=== PATIENT | male | born 1970 | race Caucasian/White ===

== ENCOUNTER 2021-07-22 22:39 | Inpatient (IN) | payer MEDICAID ==
[~2021-07-22] VITALS: Ht 165.1 cm; Wt 76.7 kg
[2021-07-23] MEDS ORDERED: ZOLPIDEM TARTRATE 5 MG TABLET PO PRN (08:30)
[2021-07-23] MEDS ORDERED: HALOPERIDOL 5 MG TABLET PO PRN (08:30)
[2021-07-23 10:58] VITALS: BP 150/86
[2021-07-23] MEDS ORDERED: DEXTROSE 50%-WATER 25 GM/50 ML SYRINGE IVP PRN (11:15)
[2021-07-23] MEDS: LISINOPRIL 20 MG TABLET PO SCH (12:21)
[2021-07-23] MEDS: FOLIC ACID 1 MG TABLET PO SCH (12:21)
[2021-07-23] MEDS: ASPIRIN 81 MG CHEWABLE TABLET PO SCH (12:21)
[2021-07-23] MEDS: ATORVASTATIN CALCIUM 40 MG TABLET PO SCH (12:21)
[2021-07-23] MEDS: MULTIVITAMINS WITH MINERALS, THERAPEUTIC TABLET PO SCH (12:22)
[2021-07-23] MEDS: METOPROLOL TARTRATE 50 MG TABLET PO SCH (16:13)
[2021-07-23] MEDS: PANTOPRAZOLE SODIUM 40 MG DR TABLET PO SCH (16:13)
[2021-07-23 16:26] LABS: GLUCOMETER DEV NAME(LOC) 3E.C; GLUCOSE,POINT OF CARE 184 MG/DL (70-110)
[2021-07-23 16:30] VITALS: BP 111/76
[2021-07-23] MEDS: MIRTAZAPINE 30 MG TABLET PO SCH ×2 (20:23→21:07)
[2021-07-23] MEDS: QUEtiapine FUMARATE 100 MG TABLET PO SCH ×2 (20:23→21:08)
[2021-07-23] MEDS ORDERED: INSULIN GLARGINE,HUM.REC.ANLOG 100 UNITS/ML SQ SCH (21:00)
[2021-07-23] MEDS ORDERED: ZOLPIDEM TARTRATE 10 MG TABLET PO PRN (22:24)
[2021-07-23 23:08] LABS: COVID AG,FIA SOURCE NASAL SWAB
[2021-07-24] MEDS: INSULIN LISPRO 100 UNITS/ML SQ PRN ×2 (07:01→17:02)
[2021-07-24 07:11] LABS: GLUCOMETER DEV NAME(LOC) 3E.C; GLUCOSE,POINT OF CARE 202 MG/DL (70-110)
[2021-07-24 08:26] VITALS: BP 128/86
[2021-07-24] MEDS: FOLIC ACID 1 MG TABLET PO SCH (08:55)
[2021-07-24] MEDS: PANTOPRAZOLE SODIUM 40 MG DR TABLET PO SCH ×2 (08:55→16:42)
[2021-07-24] MEDS: METOPROLOL TARTRATE 50 MG TABLET PO SCH ×2 (08:55→17:30)
[2021-07-24] MEDS: LISINOPRIL 20 MG TABLET PO SCH (08:55)
[2021-07-24] MEDS: ATORVASTATIN CALCIUM 40 MG TABLET PO SCH (08:55)
[2021-07-24] MEDS: MULTIVITAMINS WITH MINERALS, THERAPEUTIC TABLET PO SCH (08:55)
[2021-07-24] MEDS: ASPIRIN 81 MG CHEWABLE TABLET PO SCH (08:55)
[2021-07-24] MEDS: LORazepam 2 MG TABLET PO PRN ×2 (08:56→16:55)
[2021-07-24] MEDS ORDERED: THIAMINE 100 MG TABLET PO SCH (09:00)
[2021-07-24] MEDS ORDERED: NICOTINE POLACRILEX 4 MG GUM CHEW PRN (09:45)
[2021-07-24 10:03] LABS: BASOPHILS % (AUTO) 0.6 % (0.0-2.0); HEMATOCRIT 37.2 % (41-53); HEMOGLOBIN 12.8 g/dL (13.5-17.5); LYMPHOCYTES # (AUTO) 1.4 K/uL (1.0-4.8); LYMPHOCYTES % (AUTO) 23.4 % (22.0-44.0); MEAN CORPUSCULAR HEMOGLOBIN 31.7 pg (26.0-34.0); MEAN CORPUSCULAR HGB CONC 34.5 G/dL (31.0-37.0); MEAN CORPUSCULAR VOLUME 92 fL (80-100); MONOCYTES # (AUTO) 0.5 K/uL (0.1-1.0); MONOCYTES % (AUTO) 8.6 % (2.0-9.0); NEUTROPHILS # (AUTO) 3.8 K/uL (1.8-7.7); NEUTROPHILS % (AUTO) 62.4 % (40.0-70.0); PLATELET COUNT (AUTO) 124 K/uL (150-450); RED BLOOD CELL COUNT(AUTO) 4.05 MIL/uL (4.50-5.90); RED CELL DISTRIBUTION WIDTH 13.9 % (11.5-14.5)
[2021-07-24 10:14] LABS: ALANINE AMINOTRANSFERASE 79 U/L (12-78); ALBUMIN 3.3 g/dL (3.4-5.0); ALKALINE PHOSPHATASE 63 U/L (46-116); ANION GAP 11 mmol/L (8-16); ASPARTATE AMINOTRANSFERASE 69 U/L (15-37); BILIRUBIN,TOTAL 0.5 mg/dL (0.1-1.0); CALCIUM, TOTAL 9.3 mg/dL (8.8-10.5); CARBON DIOXIDE 25 mmol/L (22-29); CHLORIDE 101 mmol/L (98-107); CHOL/HDL RATIO 2.9 (4.2-7.3); CHOLESTEROL 180 mg/dL (131-200); CREATININE 0.88 mg/dL (0.60-1.30); GLOMERULAR FILTR. RATE CALC > 60 mL/min (>60); GLUCOSE,RANDOM 257 mg/dL (70-110); HDL CHOLESTEROL 62 mg/dL (40-60); LDL CHOL (CALC.) 91 mg/dL (0-130); SODIUM SERUM 137 mmol/L (136-145); TOTAL PROTEIN, SERUM 7.5 g/dL (6.4-8.2); TRIGLYCERIDES 137 mg/dL (15-150); UREA NITROGEN, BLOOD 15 mg/dL (7-18)
[2021-07-24 10:21] LABS: HEMOGLOBIN A1C 7.9 % (3.8-5.6)
[2021-07-24 17:12] LABS: GLUCOMETER DEV NAME(LOC) 3E.C; GLUCOSE,POINT OF CARE 204 MG/DL (70-110)
[2021-07-24 18:16] VITALS: BP 109/80
== END 2021-07-24 19:00 | disposition left against medical advice (07) | DRG 751 ==
LOC: 3EC 07-23 09:01
PROVIDERS: ADMIT Psychiatry & Neurology Child & Adolescent Psychiatry; ATTEND Psychiatry & Neurology Child & Adolescent Psychiatry
DX: F33.3 Major depressive disorder, recurrent, severe with psychotic symptoms (principal); F41.9 Anxiety disorder, unspecified; Z20.822 Contact with and (suspected) exposure to COVID-19; Z59.00 Homelessness unspecified
CPT/HCPCS: 80053; 80061; 82962; 83036; 85025; 87081; G0480; J1815

== ENCOUNTER 2024-05-23 17:37 | Inpatient (IN) | payer MEDICAID, OTHER ==
[~2024-05-23] VITALS: Ht 165.1 cm; Wt 68.7 kg
[2024-05-23 18:17] LABS: HEMATOCRIT 38.1 % (41-53); HEMOGLOBIN 12.8 g/dL (13.5-17.5); LYMPHOCYTES # (AUTO) 2.7 K/uL (1.0-4.8); LYMPHOCYTES % (AUTO) 45.9 % (22.0-44.0); MEAN CORPUSCULAR HEMOGLOBIN 33.8 pg (26.0-34.0); MEAN CORPUSCULAR HGB CONC 33.7 G/dL (31.0-37.0); MEAN CORPUSCULAR VOLUME 100 fL (80-100); MONOCYTES # (AUTO) 0.6 K/uL (0.1-1.0); MONOCYTES % (AUTO) 10.9 % (2.0-9.0); NEUTROPHILS # (AUTO) 2.2 K/uL (1.8-7.7); NEUTROPHILS % (AUTO) 37.2 % (40.0-70.0); PLATELET COUNT (AUTO) 146 K/uL (150-450); RED CELL DISTRIBUTION WIDTH 14.9 % (11.5-14.5); WHITE BLOOD COUNT (AUTO) 5.8 K/uL (4.5-11.0)
[2024-05-23 18:26] LABS: ANION GAP 8 mmol/L (8-16); CALCIUM, TOTAL 7.7 mg/dL (8.8-10.5); CARBON DIOXIDE 28 mmol/L (22-29); CHLORIDE 106 mmol/L (98-107); CREATININE 0.61 mg/dL (0.60-1.30); GLOMERULAR FILTR. RATE CALC > 60 mL/min (>60); GLUCOSE,RANDOM 178 mg/dL (70-110); POTASSIUM 3.6 mmol/L (3.5-5.1); SODIUM SERUM 142 mmol/L (136-145); UREA NITROGEN, BLOOD 15 mg/dL (7-18)
[2024-05-23 18:43] LABS: ALCOHOL, BLOOD (SERUM) 334 mg/dL (0-10)
[2024-05-23 18:48] LABS: RBC MORPHOLOGY COMMENT ABNORMAL RBC MORPH
[2024-05-23 19:30] LABS: CREATINE KINASE, TOTAL ONLY 55 U/L (39-308); TROPONIN I-HIGH SENSITIVITY 4 ng/L (<76)
[2024-05-23 19:33] LABS: B-TYPE NATRIURETIC PEPTIDE 9 pg/mL (0-100)
[2024-05-23] MEDS: DiphenhydrAMINE HCL 50 MG/ML VIAL IM ONE (20:18)
[2024-05-23] MEDS: HALOPERIDOL LACTATE 5 MG/ML VIAL IM ONE (20:18)
[2024-05-23] MEDS: LORazepam 2 MG/ML VIAL IM ONE (20:26)
[2024-05-23 22:16] LABS: COVID AG,FIA SOURCE NASAL SWAB
[2024-05-23 22:38] LABS: SARS-COV2 (COVID) ANTIGEN,FIA Negative (Negative)
[2024-05-24] MEDS: ChlordiazePOXIDE HCL 25 MG CAPSULE PO ONE (04:12)
[2024-05-24 05:15] LABS: APPEARANCE,URINE CLEAR (CLEAR); BILIRUBIN,URINE NEGATIVE (NEGATIVE); COLOR,URINE YELLOW (YELLOW); GLUCOSE, URINE (UA) 300-500 mg/dL (NEGATIVE); KETONES,URINE NEGATIVE (NEGATIVE); LEUKOCYTE ESTERASE ,URINE NEGATIVE (NEGATIVE); NITRATE,URINE NEGATIVE (NEGATIVE); OCCULT BLOOD,URINE NEGATIVE (NEGATIVE); PROTEIN,URINE 30-70 mg/dL (NEGATIVE)
[2024-05-24 05:29] LABS: ALCOHOL, URINE DRUG SCREEN POSITIVE (NEGATIVE); AMPHET/METH SCREEN,URINE NEGATIVE (NEGATIVE); BARBITURATE SCREEN, URINE POSITIVE (NEGATIVE); BENZODIAZEPINES SCREEN,URINE POSITIVE (NEGATIVE); CANNABINOID SCREEN,URINE NEGATIVE (NEGATIVE); COCAINE SCREEN,URINE NEGATIVE (NEGATIVE); METHADONE SCREEN, URINE NEGATIVE (NEGATIVE); OPIATE SCREEN,URINE NEGATIVE (NEGATIVE); PHENCYCLIDINE SCREEN,URINE NEGATIVE (NEGATIVE)
[2024-05-24 05:56] LABS: RBC,URINE None Seen /HPF (0-2)
[2024-05-24 05:57] LABS: BACTERIA,URINE None Seen /HPF (None Seen); FINE GRANULAR CASTS,URINE 0-2 /LPF (None Seen); SQUAMOUS EPITHELIAL CELL,UR Few /LPF (None Seen); WBC,URINE None Seen /HPF (0-5)
[2024-05-24 06:26] LABS: GLUCOMETER DEV NAME(LOC) ER.7; GLUCOSE,POINT OF CARE 187 MG/DL (70-110)
[2024-05-24] MEDS: CloNIDine HCL 0.2 MG TABLET PO ONE (06:29)
[2024-05-24 07:50] LABS: GLUCOMETER DEV NAME(LOC) ER.7; GLUCOSE,POINT OF CARE 253 MG/DL (70-110)
[2024-05-24] MEDS: MetFORMIN HCL 500 MG TABLET PO ONE (08:45)
[2024-05-24 09:50] LABS: GLUCOMETER DEV NAME(LOC) ER.7; GLUCOSE,POINT OF CARE 191 MG/DL (70-110)
[2024-05-24] MEDS ORDERED: PETROLATUM,WHITE 28 GM JELLY TP PRN (16:15)
[2024-05-24] MEDS ORDERED: DOCUSATE SODIUM 100 MG CAPSULE PO PRN (16:15)
[2024-05-24] MEDS ORDERED: BENZOCAINE/MENTHOL [CEPACOL] LOZENGE PO PRN (16:15)
[2024-05-24] MEDS ORDERED: MAG HYDROX/ALUMINUM HYD/SIMETH ES 30 ML SUSPENSION UDCUP PO PRN (16:15)
[2024-05-24] MEDS ORDERED: ONDANSETRON 4 MG TABLET PO PRN (16:15)
[2024-05-24] MEDS ORDERED: ALBUTEROL SULFATE HFA 90 MCG/PUFF 8 GM INHALER IH PRN (16:15)
[2024-05-24] MEDS ORDERED: CloNIDine HCL 0.1 MG TABLET PO PRN (16:15)
[2024-05-24] MEDS ORDERED: BACITRACIN 28 GM OINTMENT TP PRN (16:15)
[2024-05-24] MEDS ORDERED: LOPERAMIDE HCL 2 MG CAPSULE PO PRN (16:15)
[2024-05-24] MEDS ORDERED: OMEPRAZOLE 20 MG CAPSULE PO PRN (16:15)
[2024-05-24] MEDS ORDERED: MAGNESIUM HYDROXIDE SUSPENSION 30 ML UDCUP PO PRN (16:15)
[2024-05-24] MEDS ORDERED: IBUPROFEN 600 MG TABLET PO PRN (16:15)
[2024-05-24] MEDS ORDERED: ACETAMINOPHEN 325 MG TABLET PO PRN (16:15)
[2024-05-24] MEDS: LORazepam 2 MG TABLET PO PRN (16:29)
[2024-05-24 18:17] VITALS: BP 137/84; PULSE 75; RESP 18; TEMP 98; O2SAT 98
[2024-05-24] MEDS ORDERED: INFLUENZA VIRUS VACCINE TVS (6MO+) 2024-25/PF 45 MCG/0.5 ML SYRINGE IM. ONE (18:45)
[2024-05-24] MEDS: NICOTINE POLACRILEX 2 MG LOZENGE PO PRN (21:04)
[2024-05-24] MEDS: ZOLPIDEM TARTRATE 10 MG TABLET PO PRN (21:04)
[2024-05-24 21:22] VITALS: BP 109/72; PULSE 80; RESP 18; TEMP 97.9; O2SAT 99
[2024-05-25] MEDS: HALOPERIDOL 5 MG TABLET PO PRN (09:21)
[2024-05-25 09:36] VITALS: BP 160/90; PULSE 81; RESP 17; TEMP 98; O2SAT 97
[2024-05-25] MEDS ORDERED: DEXTROSE 50%-WATER 25 GM/50 ML SYRINGE IVP PRN (16:45)
[2024-05-25] MEDS: ASPIRIN 81 MG CHEWABLE TABLET PO SCH (17:19)
[2024-05-25] MEDS: SERTRALINE HCL 100 MG TABLET PO SCH (17:20)
[2024-05-25] MEDS: ATORVASTATIN CALCIUM 40 MG TABLET PO SCH (17:20)
[2024-05-25] MEDS: INSULIN LISPRO 100 UNITS/ML SQ PRN (17:27)
[2024-05-25] MEDS: AmLODIPine BESYLATE 5 MG TABLET PO SCH (17:29)
[2024-05-25] MEDS: MetFORMIN HCL 500 MG TABLET PO SCH (17:29)
[2024-05-25 17:31] LABS: GLUCOMETER DEV NAME(LOC) 3EX.2; GLUCOSE,POINT OF CARE 259 MG/DL (70-110)
[2024-05-25] MEDS: SitaGLIPtin PHOSPHATE 25 MG TABLET PO SCH (18:24)
[2024-05-25] MEDS: OLMESARTAN MEDOXOMIL 20 MG TABLET PO SCH (18:24)
[2024-05-25] MEDS: APIXABAN 5 MG TABLET PO SCH (18:24)
[2024-05-25] MEDS: BUDESONIDE/FORMOTEROL FUMARATE 160-4.5 MCG/PUFF 10.2 GM INHALER IH SCH (18:24)
[2024-05-25 21:01] LABS: GLUCOMETER DEV NAME(LOC) 3EX.2; GLUCOSE,POINT OF CARE 189 MG/DL (70-110)
[2024-05-25 21:24] VITALS: BP 158/93; PULSE 97; RESP 18; TEMP 98.1; O2SAT 97
[2024-05-25] MEDS: INSULIN GLARGINE,HUM.REC.ANLOG 100 UNITS/ML SQ SCH (21:24)
[2024-05-26 06:46] LABS: GLUCOMETER DEV NAME(LOC) 3EX.2; GLUCOSE,POINT OF CARE 145 MG/DL (70-110)
[2024-05-26] MEDS ORDERED: SERT-162 PO (08:16)
[2024-05-26] MEDS ORDERED: APIX5TAB PO (08:22)
[2024-05-26] MEDS ORDERED: ASPI-1227 PO (08:23)
[2024-05-26] MEDS ORDERED: ASPI-1515 PO (08:23)
[2024-05-26] MEDS ORDERED: ATOR40TA28 PO (08:23)
[2024-05-26] MEDS ORDERED: AMLO-257 PO (08:24)
[2024-05-26] MEDS ORDERED: BUDE10.26 IH (08:25)
[2024-05-26] MEDS ORDERED: FOLI0.4T6 PO (08:25)
[2024-05-26] MEDS ORDERED: INSLAN SQ (08:26)
[2024-05-26] MEDS ORDERED: MULT1TAB28 PO (08:27)
[2024-05-26] MEDS ORDERED: SITA25 PO (08:28)
[2024-05-26] MEDS ORDERED: OLME20TA73 PO (08:28)
[2024-05-26] MEDS ORDERED: METF-1211 PO (08:28)
[2024-05-26] MEDS ORDERED: THIA100T80 PO (08:29)
[2024-05-26] MEDS: FOLIC ACID 1 MG TABLET PO SCH (09:20)
[2024-05-26] MEDS: MULTIVITAMINS WITH MINERALS, THERAPEUTIC TABLET PO SCH (09:21)
[2024-05-26] MEDS: THIAMINE 100 MG TABLET PO SCH (09:21)
[2024-05-26 11:41] LABS: GLUCOMETER DEV NAME(LOC) 3EX.2; GLUCOSE,POINT OF CARE 137 MG/DL (70-110)
[2024-05-26 12:09] VITALS: BP 133/94; PULSE 90; RESP 17; TEMP 97.1; O2SAT 98
== END 2024-05-26 13:58 | disposition home or self-care (01) | DRG 753 ==
LOC: EMS 17:37 → 3EI 05-24 15:22
PROVIDERS: ADMIT Psychiatry & Neurology Psychiatry; ATTEND Psychiatry & Neurology Psychiatry
DX: F31.9 Bipolar disorder, unspecified (principal); E10.9 Type 1 diabetes mellitus without complications; F10.10 Alcohol abuse, uncomplicated; F17.200 Nicotine dependence, unspecified, uncomplicated; F41.9 Anxiety disorder, unspecified; G47.00 Insomnia, unspecified; Z20.822 Contact with and (suspected) exposure to COVID-19; I10 Essential (primary) hypertension; R07.89 Other chest pain; F10.129 Alcohol abuse with intoxication, unspecified; I25.10 Atherosclerotic heart disease of native coronary artery without angina pectoris; K21.9 Gastro-esophageal reflux disease without esophagitis; Z71.6 Tobacco abuse counseling; Z79.4 Long term (current) use of insulin; Z86.73 Personal history of transient ischemic attack (TIA), and cerebral infarction without residual deficits
CPT/HCPCS: 71045; 80048; 80307; 81001; 82550; 82962; 83880; 84484; 85025; 93005; 99285; G0480; J1200; J1630; J1815; J2060; 36415-L1; 36415-TC